=== PATIENT | female | born 1945 | race African-American/Black ===

== ENCOUNTER 2018-11-29 17:51 | Emergency (ER) | payer OTHER ==
[~2018-11-29] VITALS: Ht 154.9 cm; Wt 70.3 kg
[2018-11-29] MEDS ORDERED: TYLENOL EXTRA500 MG PO (18:10)
[2018-11-29] MEDS ORDERED: AMOXICILLIN 50500 MG PO (18:11)
[2018-11-29] MEDS ORDERED: REPATHA PU420 MG/3.5 SUBQ (18:12)
[2018-11-29] MEDS ORDERED: FELODIPINE 5 MG5 M1 PO (18:13)
[2018-11-29] MEDS ORDERED: LOPRESSOR50 PO (18:13)
[2018-11-29] MEDS ORDERED: PRADAXA75 MG PO (18:13)
[2018-11-29] MEDS ORDERED: VITAMIN D1000 UNI1 PO (18:13)
[2018-11-29 18:46] LABS: ABSOLUTE NEUTROPHILS 3.6 thou/uL (1.4-8.2); BASOPHILS 1.4 % (0.0-2.0); EOSINOPHILS 2.4 % (0.0-3.0); HEMATOCRIT 43.2 % (37.0-47.0); HEMOGLOBIN 14.4 gm/dL (12.0-15.0); LYMPHOCYTES 32.7 % (24.0-44.0); MCH 30.9 pg (26.0-34.0); MCHC 33.4 g/dL (28.0-37.0); MCV 92.6 fL (80.0-100.0); MONOCYTES 8.6 % (1.0-8.0); PLATELET COUNT 268 thou/uL (150-400); POLYS 54.9 % (36.0-66.0); RBC 4.66 mil/uL (4.20-5.00); RDW 14.8 % (10.5-14.5); WBC 6.6 thou/uL (4.0-11.0)
[2018-11-29 18:58] LABS: INR 1.1; PROTIME 11.5 Seconds (9.3-11.4)
[2018-11-29 19:02] LABS: ANION GAP 10 mmol/L (7-16); BUN 11 mg/dL (7-18); CALCIUM 9.6 mg/dL (8.5-10.1); CHLORIDE 102 mmol/L (98-107); CO2 28 mmol/L (21-32); GLUCOSE 112 mg/dL (74-106); POTASSIUM 3.4 mmol/L (3.5-5.1); SODIUM 140 mmol/L (136-145)
[2018-11-29 19:06] LABS: ALBUMIN 3.7 g/dL (3.4-5.0); SGOT 19 U/L (15-37); SGPT 20 U/L (30-65); TOTAL BILIRUBIN < 0.1 mg/dL (<0.1-1.0); TOTAL PROTEIN 8.4 g/dL (6.4-8.2)
[2018-11-29] MEDS ORDERED: TYLENOL325 MG PO (19:54)
[2018-11-29] MEDS ORDERED: VENTOLIN HFA 1818 GM INH (20:14)
[2018-11-29 20:32] VITALS: BP 171/70
--- NOTE | 2018-12-01 13:59 | EKG ---
[address] [email or web address] [address] ELECTROCARDIOGRAM REPORT Name: LINDAMOLLYE Room #: DEP REBECCA Christina#: [id number] Admission: 11/29/18 Attend Phys: Discharge: 11/29/18 Date of : 47 Report #: [id number] THIS REPORT FOR: //name// [facility] ED Test Date: 2018-11-29 Test Time: 17:54:27 Pat Name: HERMAN MCKEON Department: Room: Gender: F Ct Technologist: IVIS : 1945 Requested By: Jason Campbell Order Number: [id number] MD: Saul Berry Measurements Intervals [place] Rate: 76 P: 84 MA: 205 QRS: 15 QRSD: 84 T: 29 QT: 411 QTc: 463 Interpretive Statements Sinus rhythm Baseline wander in lead(s) V4 No previous ECG available for comparison Electronically Signed On 12-01-2018 13:59:12 CDT by Saul Berry [email or web address] <ELECTRONICALLY SIGNED> By: Saul Berry MD 12/01/18 [id number] 1754 MD BRY Bradford
== END 2018-11-29 20:28 | disposition home or self-care (01) ==
LOC: ER 17:51
PROVIDERS: Emergency Medicine
DX: S29.012A Strain of muscle and tendon of back wall of thorax, initial encounter (principal); I48.91 Unspecified atrial fibrillation; Z85.3 Personal history of malignant neoplasm of breast; Z90.13 Acquired absence of bilateral breasts and nipples; Z88.5 Allergy status to narcotic agent; Z88.8 Allergy status to other drugs, medicaments and biological substances; Z88.6 Allergy status to analgesic agent; V89.2XXA Person injured in unspecified motor-vehicle accident, traffic, initial encounter; Y92.89 Other specified places as the place of occurrence of the external cause; Y93.89 Activity, other specified; Y99.8 Other external cause status